=== PATIENT | male | born 1935 | race Caucasian/White ===

== ENCOUNTER 2018-06-02 00:20 | Observation (INO) ==
[2018-06-02] MEDS ORDERED: hydrALAZINE 10 MG Tablet PO ONE (04:14)
[2018-06-02 04:27] LABS: Baso % (Auto) 0.6 % (0.0-2.0); Eos # (Auto) 0.2 th/mm3 (0.0-0.4); Eos % (Auto) 2.5 % (0.0-4.0); Hematocrit 46.6 % (39.0-51.0); Hemoglobin 15.7 gm/dL (13.0-17.0); Lymph # (Auto) 2.7 th/mm3 (1.0-4.8); Lymph % (Auto) 37.6 % (9.0-44.0); Mean Corpuscular HGB Conc 33.7 % (32.0-36.0); Mean Corpuscular Hemoglobin 32.5 pg (27.0-34.0); Mean Corpuscular Volume 96.5 fL (80.0-100.0); Mean Platelet Volume 8.6 fL (7.0-11.0); Mono # (Auto) 0.8 th/mm3 (0.0-0.9); Mono % (Auto) 11.2 % (0.0-8.0); Neut # (Auto) 3.5 th/mm3 (1.8-7.7); Neut % (Auto) 48.1 % (16.0-70.0); Platelet Count 125 th/mm3 (150-450); Red Blood Count 4.83 mil/mm3 (4.50-5.90); Red Cell Distribution Width 14.1 % (11.6-17.2); White Blood Count 7.3 th/mm3 (4.0-11.0)
[2018-06-02 04:34] LABS: Activated Partial Thrombo Time 31.4 sec (24.3-30.1); INR 2.1 Ratio
[2018-06-02 04:44] LABS: Alanine Aminotransferase 26 U/L (12-78)
[2018-06-02 04:48] LABS: Alkaline Phosphatase 118 U/L (45-117); Total Protein 7.7 g/dL (6.4-8.2)
[2018-06-02 04:49] LABS: Albumin 3.8 g/dL (3.4-5.0); Anion Gap 8 meq/L (5-15); Aspartate Aminotransferase 31 U/L (15-37); Blood Urea Nitrogen 19 mg/dL (7-18); Carbon Dioxide 26.7 meq/L (21.0-32.0); Chloride 106 meq/L (98-107); Glomerular Filtration Rate 71 mL/min (>89); Glucose,Random 96 mg/dL (74-106); Sodium 141 meq/L (136-145)
[2018-06-02 04:51] LABS: Potassium 4.1 meq/L (3.5-5.1)
--- NOTE | 2018-06-02 05:07 | XR ---
EXAM DATE: 06/02/2018 4:30 AM EDT AGE/SEX: 83 years / Male INDICATIONS: High blood pressure off and on for almost one year. CLINICAL DATA: This is the patient's initial encounter. Patient reports that signs and symptoms have been present for 7 - 11 months and indicates a pain score of 0/10. MEDICAL/SURGICAL HISTORY: Hypertension. . Pacemaker. Back surgery COMPARISON: No prior exams available for comparison. FINDINGS: A pacing implement is present with control pack over left upper chest. Slight hazy pleural-parenchyma l opacity at the left base of undetermined chronicity. Scattered granulomatous calcifications. Possib le right middle lobe infiltrate. Cardiac contours are satisfactory. CONCLUSION: No prior studies. Can't exclude mild basilar infiltrates. Electronically signed by: Ace Bermeo MD 06/02/2018 5:06 AM EDT
--- NOTE | 2018-06-02 05:11 | CT ---
EXAM DATE: 06/02/2018 4:35 AM EDT AGE/SEX: 83 years / Male INDICATIONS: Cephalgia. CLINICAL DATA: This is the patient's initial encounter. Patient reports that signs and symptoms have been present for 1 day and indicates a pain score of 4/10. MEDICAL/SURGICAL HISTORY: Hypertension. Hypothyroidism. Afib. None. RADIATION DOSE: 56.35 CTDI (mGy) COMPARISON: No prior exams available for comparison. TECHNIQUE: CT of the head without contrast. Using automated exposure control and adjustment of the mA and/or kV according to patient size, radiation dose was kept as low as reasonably achievable to ob tain optimal diagnostic quality images. DICOM format image data is available electronically for revi ew and comparison. FINDINGS: Patchy hypodensity in the periventricular white matter. No evidence of mass or hemorrhage. Nothing to suggest acute infarction. Ventricles symmetric and normal. Extracranial structures are benign and in tact. CONCLUSION: No acute intracranial findings. . Electronically signed by: Ace Bermeo MD 06/02/2018 5:10 AM EDT
--- NOTE | 2018-06-02 05:34 | ED ---
HPI General Chief complaint: Hypertension Stated complaint: Medical Time Seen by Provider: 06/02/18 03:07 Source: patient Limitations: no limitations History of Present Illness HPI narrative: The patient is an 83 year old male who presents to the [facility] emergency department with a history of difficult to control blood pressure since Saturday. The patient reports that he knows that his blood pressure is up when he gets a headache. He reports that normally he does not have headaches. He reports that he has been experiencing a headache on the left side of his forehead. The patient also reports having worsening numbness to the left side of his face. He reports that he has a history of numbness of the left side of his face related to a prior stroke in 2016. The patient additionally reports since being in the emergency department noticing that he has developed tingling sensations in the left hand. He reports that this tingling sensation is new. He denies having any weakness of his extremities. He denies having any new facial droop. He denies having any difficulty with word finding ability. He denies having any vision changes. The patient reports that he went to an emergency department on Saturday related to his elevated blood pressure and was started on hydralazine which she has been taking 10 mg every 6 hours as needed for blood pressure systolic greater than 150. He reports that he last took it at approximately 10:30 PM. The patient reports that he has a history of atrial fibrillation and is anticoagulated on Coumadin. The patient reports that he became concerned when his blood pressure was 218/130 prior to arrival. On review of systems otherwise, the patient denies having any known recent fevers, cough, congestion, neck pain, chest pain , shortness of breath, abdominal pain, vomiting, diarrhea, urinary symptoms, or other neurologic symptoms. Related Data Home Medications Medication Instructions Recorded Confirmed diltiazem HCl 120 mg PO Q12H 06/02/18 06/02/18 hydralazine 10 mg PO QID 06/02/18 06/02/18 levothyroxine [Synthroid] 112 mcg PO DAILY 06/02/18 06/02/18 warfarin [Coumadin] 5 mg PO QTUTHSA 06/02/18 06/02/18 warfarin [Coumadin] See Label Instructions .ROUTE 06/02/18 06/02/18 .COMPLEX Allergies Allergy/AdvReac Type Severity Reaction Status Date / Time No Known Allergies Allergy Unverified 06/02/18 04:02 Review of Systems ROS: all other systems reviewed are negative [facility] Medical History Medical History A-fib (Acute) Hypertension (Acute) Hypothyroid (Acute) Pacemaker (Acute) Sleep apnea (Acute) Surgical History Surgical History History of knee joint replacement (Acute) S/P placement of cardiac pacemaker (Acute) Social History Social History Substance History: No History of Abuse Second Hand Smoke Exposure: Yes Smoking Status: Never smoker How Often Do You Have a Drink Containing Alcohol: Monthly or less Recent Travel in [facility] within the Last 8 Weeks: No Recent Out of Country Travel within the Last 8 Weeks: No Immunization History Tetanus Immunization: >5 Years Hx Influenza Vaccine This Season: No Exam Const General: cooperative, no acute distress and well developed Nutritional Appearance: well nourished Orientation: alert, awake and oriented x3 HENMT Head: normocephalic and atraumatic Nose: no nasal discharge and no epistaxis Mouth: moist mucous membranes Throat: posterior oropharynx normal and uvula midline Eyes Sclera: normal sclerae Pupils: PERRL Neck Neck: no meningeal signs, trachea midline and no JVD Resp Effort & Inspection: no use of accessory muscles Auscultation: clear to auscultation bilaterally Cardio Rate: regular rate Rhythm: regular rhythm Heart Sounds: no murmurs GI Inspection: non-distended Palpation: soft, no hepatosplenomegaly and nontender Skin General: dry skin (warm) Neuro General: alert, awake and oriented x3 Cranial Nerves: CN's II-XI intact bilaterally Speech: speech normal Motor: strength 5/5 throughout and no movement abnormalities noted Sensory Exam: no sensory deficits noted and other (The patient reports tingling sensations to the left side of his face, left hand fingers specifically.) Extrem General: normal to inspection, no clubbing, no cyanosis and no edema Psych Mood: congruent mood Affect: normal affect Judgment: judgment good Course Consultations Consultation #1: The patient's case including history, pertinent physical examination findings, and laboratory studies were discussed with Dr. Marrufo. It was agreed that the patient would be admitted to the hospitalist service. Initial Documented Vital Signs Temperature 98 F 06/02/18 02:50 Pulse Rate 63 06/02/18 02:50 Respiratory Rate 20 06/02/18 02:50 Blood Pressure 164/81 H 06/02/18 02:50 Pulse Oximetry 97 06/02/18 02:50 Last Documented Vital Signs Temperature 98 F 06/02/18 02:50 Pulse Rate 88 06/02/18 06:50 Respiratory Rate 20 06/02/18 06:50 Blood Pressure 179/98 H 06/02/18 06:50 Pulse Oximetry 98 06/02/18 06:50 Medical Decision Making MDM Narrative Medical decision making narrative: During the course of the patient's emergency department visit, the patient's history, examination, and differential diagnosis were reviewed with the patient. The patient was placed on a rn cardiac with oximetry and frequent blood pressure monitoring. The patient had IV access obtained and blood work sent for analysis. The patient was initially provided his usual dose of hydralazine 10mg po x1. The patient's diagnostic evaluation is remarkable for normal white blood cell count, normal hemoglobin, platelets of 125, monocytosis at 11.2, INR of 2.1, chemistry is remarkable for BUN of 19, GFR of 71, alkaline phosphatase 118, troponin I is less than 0.02. Chest x-ray showed haziness in bilateral lung cani which according to the radiologist, the chronicity of could not be determined. The patient denies any cough, congestion, or fever, therefore and also has a normal white blood cell count, therefore pneumonia is unlikely. CT scan of the brain shows no acute intracranial abnormality. The patient on reexamination reports having tingling sensations in the left arm and hand. He reports that this could be positional or related to the blood pressure cuff, however he has never had symptoms like this before. Therefore, the patient will be admitted to rule out TIA versus CVA. The patient's results were discussed with the patient, including the plan of care. I explained that further testing and/ or monitoring is indicated based on the patient's history, examination, and/ or laboratory findings. Therefore, I recommended admission for additional evaluation. The patient expressed understanding and was agreeable with this plan. The patient was admitted to the hospital in stable condition and sent to a bed under the care of the [facility] service. Medical Screen Exam Complete: Yes Emergency Medical Condition: Yes Differential Diagnosis Differential Diagnosis: TIA, versus CVA, versus intracranial mass, versus electrolyte derangements, versus peripheral neuropathy Medical Records Medical records reviewed: Yes I reviewed the patient's medical records. Lab Data Lab results reviewed: Yes I reviewed the patient's lab results. Result diagrams: 06/02/18 04:17 06/02/18 04:17 Lab Results 06/02/18 06/02/18 06/02/18 Range/Units 04:17 04:17 04:17 WBC 7.3 (4.0-11.0) th/mm3 RBC 4.83 (4.50-5.90) mil/mm3 Hgb 15.7 (13.0-17.0) gm/dL Hct 46.6 (39.0-51.0) % MCV 96.5 (80.0-100.0) fL MCH 32.5 (27.0-34.0) pg MCHC 33.7 (32.0-36.0) % RDW 14.1 (11.6-17.2) % Plt Count 125 L (150-450) th/mm3 MPV 8.6 (7.0-11.0) fL Neut % (Auto) 48.1 (16.0-70.0) % Lymph % (Auto) 37.6 (9.0-44.0) % [place] % (Auto) 11.2 H (0.0-8.0) % Eos % (Auto) 2.5 (0.0-4.0) % Baso % (Auto) 0.6 (0.0-2.0) % Neut # (Auto) 3.5 (1.8-7.7) th/mm3 Lymph # (Auto) 2.7 (1.0-4.8) th/mm3 [place] # (Auto) 0.8 (0.0-0.9) th/mm3 Eos # (Auto) 0.2 (0.0-0.4) th/mm3 Baso # (Auto) 0.0 (0.0-0.2) th/mm3 WBC Differential . Differential Comment Auto diff final PT 21.0 H (9.8-11.6) sec INR 2.1 Ratio APTT 31.4 H (24.3-30.1) sec Sodium 141 (136-145) meq/L Potassium 4.1 (3.5-5.1) meq/L Chloride 106 (98-107) meq/L Carbon Dioxide 26.7 (21.0-32.0) meq/L Anion Gap 8 (5-15) meq/L BUN 19 H (7-18) mg/dL Creatinine 1.01 (0.60-1.30) mg/dL Estimated GFR 71 L (>89) mL/min Random Glucose 96 (74-106) mg/dL Calcium 9.0 (8.5-10.1) mg/dL Magnesium 2.0 (1.5-2.5) mg/dL Total Bilirubin 0.7 (0.2-1.0) mg/dL AST 31 (15-37) U/L ALT 26 (12-78) U/L Alkaline Phosphatase 118 H (45-117) U/L Troponin I Less than 0.02 L (0.02-0.05) ng/mL Total Protein 7.7 (6.4-8.2) g/dL Albumin 3.8 (3.4-5.0) g/dL Imaging Data Radiologist's impression: Chest X-Ray 06/02/18 04:11 CONCLUSION: No prior studies. Can't exclude mild basilar infiltrates. Head CT 06/02/18 04:11 CONCLUSION: No acute intracranial findings. . ECG Data Attestation: I personally reviewed and interpreted this ECG as follows: Interpretation: The patient had a EKG done on arrival. The patient's EKG reveals electronic ventricular paced rhythm heart rate of 60. No acute ST segment elevation. Discharge Plan Discharge Disposition Patient Disposition: 30 Still Patient Discharge Details Diagnosis: Neurological symptoms, Hypertension Physicians Team ED Provider: Juliette Ramírez Primary Care Provider: UNKNOWN, Attending Provider: Andrew Trevino Status ED Status: Left Department Discharge Information Discharge Date/Time: 06/02/18 08:06
[2018-06-02] MEDS ORDERED: Bisacodyl 10 MG Supp RECTAL PRN (06:13)
[2018-06-02] MEDS ORDERED: Acetaminophen 325 MG Tablet PO PRN (06:13)
[2018-06-02] MEDS ORDERED: Sod Chloride 0.9% Inj 1,000 ML IV.CONT SCH (06:15)
[2018-06-02 08:58] VITALS: RESP 18
[2018-06-02] MEDS ORDERED: Senna/Docusate Sodium 8.6/50 MG Tablet PO SCH (09:00)
[2018-06-02] MEDS ORDERED: hydrALAZINE 10 MG Tablet PO SCH (13:00)
[2018-06-02 13:31] VITALS: TEMP 98.7
[2018-06-02] MEDS ORDERED: dilTIAZem CD 240 MG Capsule PO SCH (14:00)
--- NOTE | 2018-06-02 14:53 | P.HP ---
History of Present Illness Primary Care Physician: UNKNOWN Chief Complaint: My BP is elevated and I am having left facial + left hand paresthesia History of Present Illness: 83-year-old man past medical history of hypertension, atrial fibrillation, pacemaker presented to the ED for evaluation of headaches due to elevated BP and worsening left facial and left arm paresthesia. Patient states, prior to arrival was having worsening headaches which he attributed to uncontrolled BP. He was recently started on hydralazine for labile blood pressure over the past week. When patient presented to the ED, he was found to have BP of 164/81. Denies any current GI bleed. - Diagnosis (1) Hypertensive urgency Review of Systems All other systems reviewed negative except as stated in HPI [facility] - History History Provided By: Patient - Medical History Medical History: Medical History (Last Updated 06/02/18 @ 06:44 by Yessenia Cuellar) A-fib Hypertension Hypothyroid Pacemaker Sleep apnea - Surgical History Surgical History: Surgical History (Last Reviewed 06/02/18 @ 06:03 by Juliette Ramírez MD) History of knee joint replacement S/P placement of cardiac pacemaker - Family History Family History: Family History (Last Updated 06/02/18 @ 14:49 by Andrew Trevino MD) Other Heart disease - Tobacco History Second Hand Smoke Exposure: No Smoking Status: Never smoker - Alcohol History How Often Do You Have a Drink Containing Alcohol: 2 to 4 times a month - Substance Use History Substance History: No History of Abuse - Travel History Recent Travel in the [place] Within the Last 8 Weeks: No Recent Travel Out of the Country Within the Last 8 Weeks: No - Immunization History Tetanus Immunization: >5 Years Hx Influenza Vaccine This Season: No Medications and Allergies Active Medications: Active Medications Acetaminophen (Tylenol) 650 mg PO Q4H PRN PRN Reason: Temp > 100.4 Al Hydroxide/Mg Hydroxide (Milk Of Magnesia Liq) 30 ml PO Q12H PRN PRN Reason: Mild Constipation Bisacodyl (Dulcolax Supp) 10 mg RECTAL DAILY PRN PRN Reason: SEVERE CONSITIPATION Diltiazem HCl (Cardizem Cd 24hr) 240 mg PO DAILY [facility] Last Admin: 06/02/18 13:46 Dose: 240 mg Hydralazine HCl (Apresoline) 10 mg PO QID [facility] Last Admin: 06/02/18 13:46 Dose: 10 mg Sodium Chloride (Ns Inj) 1,000 mls @ 100 mls/hr IV.CONT .Q10H [facility] Last Admin: 06/02/18 06:51 Dose: 100 mls/hr Lactulose (Lactulose Liq) 30 ml PO DAILY PRN PRN Reason: SEVERE CONSITIPATION Levothyroxine Sodium (Synthroid) 112 mcg PO DAILY@0600 [facility] Ondansetron HCl (Zofran Inj) 4 mg IV.PUSH Q6H PRN PRN Reason: NAUSEA OR VOMITING Pravastatin Sodium (Pravachol) 40 mg PO DAILY [facility] Last Admin: 06/02/18 08:32 Dose: 40 mg Senna/Docusate Sodium (Pat-Colace) 1 tab PO BID [facility] Last Admin: 06/02/18 08:32 Dose: 1 tab Sennosides (Senokot) 17.2 mg PO Q12H PRN PRN Reason: Moderate Constipation Sodium Chloride (Ns Flush) 2 ml IV.FLUSH UNSCH PRN PRN Reason: FLUSH AFTER USING IV ACCESS Allergies Allergy/AdvReac Type Severity Reaction Status Date / Time No Known Allergies Allergy Unverified 06/02/18 04:02 Home Medications Medication Instructions Recorded Confirmed Type atorvastatin [Lipitor] 10 mg PO EVERY OTHER DAY 06/02/18 06/02/18 History diltiazem HCl 120 mg PO Q12H 06/02/18 06/02/18 History hydralazine 10 mg PO QID 06/02/18 06/02/18 History levothyroxine [Synthroid] 112 mcg PO DAILY 06/02/18 06/02/18 History warfarin [Coumadin] 5 mg PO QTUTHSA 06/02/18 06/02/18 History warfarin [Coumadin] See Label Instructions .ROUTE 06/02/18 06/02/18 History .COMPLEX Exam Vital signs: Vital Signs 06/02/18 02:50 06/02/18 02:53 06/02/18 06:13 Temperature 98 F Pulse Rate 63 60 78 Respiratory Rate 20 20 20 Blood Pressure 164/81 H 162/80 H 194/97 H Pulse Oximetry 97 97 98 06/02/18 06:50 06/02/18 08:56 06/02/18 12:00 Temperature 97.6 F 98.7 F Pulse Rate 88 63 61 Respiratory Rate 20 18 18 Blood Pressure 179/98 H 136/86 168/84 H Pulse Oximetry 98 97 96 Intake & Output 06/01/18 06/02/18 06/02/18 18:59 06:59 18:59 Intake Total 120 / 120 Balance 120 / 120 Weight 86.183 kg 104.326 kg Intake: Oral 120 / 120 Other: Weight On Admission 104.326 kg Narrative: GENERAL: NAD SKIN: Warm and dry. HEAD: Atraumatic. Normocephalic. EYES: Pupils equal and round. No scleral icterus. No injection or drainage. ENT: No nasal bleeding or discharge. Mucous membranes pink and moist. NECK: Trachea midline. No JVD. CARDIOVASCULAR: irreg Regular rate and rhythm. RESPIRATORY: No accessory muscle use. Clear to auscultation. Breath sounds equal bilaterally. GASTROINTESTINAL: Abdomen soft, non-tender, nondistended. Hepatic and splenic margins not palpable. MUSCULOSKELETAL: Extremities without clubbing, cyanosis, or edema. No obvious deformities. NEUROLOGICAL: Awake and alert. No obvious cranial nerve deficits. Motor grossly within normal limits. Five out of 5 muscle strength in the arms and legs. Normal speech. PSYCHIATRIC: Appropriate mood and affect; insight and judgment normal. Results - Labs CBC & Chem 7: 06/02/18 04:17 06/02/18 04:17 Labs: Laboratory Results - last 24 hr 06/02/18 06/02/18 06/02/18 04:17 04:17 04:17 WBC 7.3 RBC 4.83 Hgb 15.7 Hct 46.6 MCV 96.5 MCH 32.5 MCHC 33.7 RDW 14.1 Plt Count 125 L MPV 8.6 Neut % (Auto) 48.1 Lymph % (Auto) 37.6 [place] % (Auto) 11.2 H Eos % (Auto) 2.5 Baso % (Auto) 0.6 Neut # (Auto) 3.5 Lymph # (Auto) 2.7 [place] # (Auto) 0.8 Eos # (Auto) 0.2 Baso # (Auto) 0.0 WBC Differential . Differential Comment Auto diff final PT 21.0 H INR 2.1 APTT 31.4 H Sodium 141 Potassium 4.1 Chloride 106 Carbon Dioxide 26.7 Anion Gap 8 BUN 19 H Creatinine 1.01 Estimated GFR 71 L Random Glucose 96 Calcium 9.0 Magnesium 2.0 Total Bilirubin 0.7 AST 31 ALT 26 Alkaline Phosphatase 118 H Troponin I Less than 0.02 L Total Protein 7.7 Albumin 3.8 06/02/18 10:50 WBC RBC Hgb Hct MCV MCH MCHC RDW Plt Count MPV Neut % (Auto) Lymph % (Auto) [place] % (Auto) Eos % (Auto) Baso % (Auto) Neut # (Auto) Lymph # (Auto) [place] # (Auto) Eos # (Auto) Baso # (Auto) WBC Differential Differential Comment PT INR APTT Sodium Potassium Chloride Carbon Dioxide Anion Gap BUN Creatinine Estimated GFR Random Glucose Calcium Magnesium Total Bilirubin AST ALT Alkaline Phosphatase Troponin I Less than 0.02 L Total Protein Albumin - Imaging Impressions Chest X-Ray 06/02/18 04:11 CONCLUSION: No prior studies. Can't exclude mild basilar infiltrates. Head CT 06/02/18 04:11 CONCLUSION: No acute intracranial findings. . Caprini VTE Risk Assessment Caprini VTE Risk Assessment: Moderate/High Risk (score >= 2) Caprini Risk Assessment Model: Point Value = 1 Point Value = 2 Point Value = 3 Point Value = 5 Age 41-60 Minor surgery BMI > 25 kg/m2 Swollen legs Varicose veins or History of unexplained or recurrent spontaneous Oral contraceptives or hormone replacement Sepsis (< 1 month) Serious lung disease, including pneumonia (< 1 month) Abnormal pulmonary function Acute myocardial infarction Congestive heart failure (< 1 month) History of inflammatory bowel disease Medical patient at bed rest Age 61-74 Arthroscopic surgery Major open surgery (> 45 min) Laparoscopic surgery (> 45 min) Malignancy Confined to bed (> 72 hours) Immobilizing plaster cast Central venous access Age >= 75 History of VTE Family history of VTE Factor V Leiden Prothrombin [id number] Lupus anticoagulant Anticardiolipin antibodies Elevated serum homocysteine Heparin-induced thrombocytopenia Other congenital or acquired thrombophilia Stroke (< 1 month) Elective arthroplasty Hip, pelvis, or leg fracture Acute spinal cord injury (< 1 month) Prophylaxis Regimen: Total Risk Factor Score Risk Level Prophylaxis Regimen 0-1 Low Early ambulation 2 Moderate Order ONE of the following: *Sequential Compression Device (SCD) *Heparin 5000 units SQ BID 3-4 Higher Order ONE of the following medications: *Heparin 5000 units SQ TID *Enoxaparin/Lovenox 40 mg SQ daily (WT < 150 kg, CrCl > 30 mL/min) *Enoxaparin/Lovenox 30 mg SQ daily (WT < 150 kg, CrCl > 10-29 mL/min) *Enoxaparin/Lovenox 30 mg SQ BID (WT < 150 kg, CrCl > 30 mL/min) AND/OR *Sequential Compression Device (SCD) 5 or more Highest Order ONE of the following medications: *Heparin 5000 units SQ TID (Preferred with Epidurals) *Enoxaparin/Lovenox 40 mg SQ daily (WT < 150 kg, CrCl > 30 mL/min) *Enoxaparin/Lovenox 30 mg SQ daily (WT < 150 kg, CrCl > 10-29 mL/min) *Enoxaparin/Lovenox 30 mg SQ BID (WT < 150 kg, CrCl > 30 mL/min) AND *Sequential Compression Device (SCD) Assessment and Plan - Assessment (1) Hypertensive urgency Code(s): I16.0 - Hypertensive urgency Status: Acute - Plan 82-year-old man with Hypertensive urgency Study post hydralazine 1 in the ED on arrival BP Resume patient's hydralazine 4 times daily next Patient states, he has an appointment with his preparator next week therefore we will defer 2D echo Resume Cardizem twice daily Patient will likely be discharged home Known history of left facial and hand paresthesia Head CT noted and reviewed by me without any intracranial abnormality Brain MRI is contraindicated secondary to patient with history of pacemaker Paroxysmal A. fib Resume Cardizem Resume Coumadin History of hyperlipidemia, hypothyroidism and other chronic medical conditions Resume outpatient medications Patient is medically stable and will be discharged home Discharge patient to home Condition on discharge: Improved Healthy Diet as tolerated Ad Soraya activity Rx written:None Follow-up with primary care physician in 1week
[2018-06-02 16:27] VITALS: PULSE 62
[2018-06-02 18:06] VITALS: BP 144/84
[2018-06-02 18:34] VITALS: O2SAT 95
--- NOTE | 2018-06-02 20:33 | ECG ---
Date Performed: 06/02/2018 Time Performed: 02:55:39 PTAGE: 83 years EKG: ELECTRONIC VENTRICULAR PACEMAKER Underlying Rhythm appears to be atrial fibrillation. This could be clinically confirmed by interogating the pacemeaker. ABNORMAL RHYTHM ECG NO PREVIOUS TRACING DOCTOR: Lilian Cummings Interpretating Date/Time 06/02/2018 20:31:52
[2018-06-03] MEDS ORDERED: Levothyroxine 112 MCG Tablet PO SCH (06:00)
== END 2018-06-02 18:45 | disposition home or self-care (01) ==
LOC: NEPE 00:20 → NEDA 00:20 → NEPGCP 08:15
PROVIDERS: ADMIT Hospitalist; ATTEND Hospitalist